=== PATIENT | female | born 1980 ===

== ENCOUNTER 2023-01-11 15:37 | Emergency (ER) | payer MEDICAID ==
[2023-01-11] MEDS ORDERED: Amoxicillin/Clavulanate K 875-125 MG Tab ONE (15:50)
== END 2023-01-11 16:45 | disposition home or self-care (01) ==
LOC: LB.ED 15:37
DX: N63.0 Unspecified lump in unspecified breast (principal); F17.210 Nicotine dependence, cigarettes, uncomplicated
CPT/HCPCS: 99282; A9270-GY